=== PATIENT | female | born 1950 | race Hispanic/Latino ===

== ENCOUNTER 2021-09-12 09:07 | Outpatient (CLI) | payer MEDICARE ==
--- NOTE | 2021-09-12 10:20 | Cat Scan Report ---
. CT CHEST WITHOUT CONTRAST INDICATION / CLINICAL INFORMATION: R22.1 F17.210 lung cancer screening . TECHNIQUE: Axial CT images were obtained through the chest without contrast. All CT scans at this [facility] ation are performed using CT dose reduction for ALARA by means of automated exposure control. COMPARISON: None available. FINDINGS: HEART: No significant abnormality. CORONARY ARTERY CALCIFICATION: Present -- Severe. THORACIC AORTA: Mild atherosclerotic calcification without acute abnormality. MEDIASTINUM / SHARDA: No significant abnormality. PLEURA: No pleural effusion. No pneumothorax. LUNGS: No acute air space or interstitial disease. No suspicious pulmonary lesion ADDITIONAL FINDINGS: No mass or adenopathy is visualized in the included lower neck. UPPER ABDOMEN: No significant abnormality. SKELETAL SYSTEM: No significant abnormality. IMPRESSION: 1. No acute abnormality. No mass or adenopathy is appreciated. 2. Severe coronary artery calcifications. Signer Name: Sven Colin Jr, MD Signed: 09/12/2021 10:16 AM Workstation Name: [id number]
--- NOTE | 2021-09-12 10:36 | Ultrasound Report ---
SOFT TISSUE NECK ULTRASOUND HISTORY: R22.1 NECK SWELLING. TECHNIQUE: Grayscale and color Doppler imaging performed. COMPARISON: None FINDINGS: Targeted ultrasound was performed in the left neck near the left jawline. The images demons trate what appear to be a prominent left submandibular gland measuring 3.8 x 3.0 x 1.1 cm. No evidenc e for focal mass, calcifications or soft tissue gas. No obvious submandibular duct dilatation is demo nstrated. No adenopathy or fluid collection. Color Doppler imaging suggest mild increased blood flow to the left submandibular gland. IMPRESSION: Slightly prominent/inflamed left submandibular gland. Signer Name: Sven Colin Jr, MD Signed: 09/12/2021 10:31 AM Workstation Name: [id number]
== END 2021-09-12 09:08 | disposition home or self-care (01) ==
LOC: US 09:07
DX: F17.210 Nicotine dependence, cigarettes, uncomplicated (principal); I25.10 Atherosclerotic heart disease of native coronary artery without angina pectoris; R22.1 Localized swelling, mass and lump, neck; I70.0 Atherosclerosis of aorta
CPT/HCPCS: 71250; 76536

== ENCOUNTER 2021-10-10 11:15 | Outpatient (CLI) | payer MEDICARE ==
--- NOTE | 2021-10-10 15:13 | Mammography Report ---
DEXA BONE DENSITY SCAN INDICATION / CLINICAL INFORMATION: Z78.0. 71 years Female COMPARISON: None available. LUMBAR SPINE, L1-L4: - Bone mineral density (BMD) = 1.302 g/cm2. - T-score = 2.3 - Change (%) since most recent prior (if available): None available. RIGHT HIP, : -Not performed. LEFT HIP, NECK : - Bone mineral density (BMD) = 0.699 g/cm2. - T-score = -1.3 - Change (%) since most recent prior (if available): None available. LEFT FOREARM, 33% RADIUS - Bone mineral density (BMD) = 0.675 g/cm2. - T-score = -0.1 - Change (%) since most recent prior (if available): None available. IMPRESSION: 1. WHO Classification: Osteopenia. Fracture Risk: Increased. 2. 10-Year Fracture Risk (FRAX) = Major Osteoporotic 3.7% / Hip: 0.4% FRAX generally not reported for patients with normal or osteoporotic BMD, in ciy-[id number]-[id number] isa ents younger than age 50, or in patients undergoing pharmacotherapy BMD Reporting Guidelines (ISCD, 2015) BMD Reporting in Postmenopausal Women and in Men Age 50 and Older - T-scores are preferred. - The WHO densitometric classification is applicable. BMD Reporting in Females Prior to Menopause and in Males Younger Than Age 50 - Z-scores, not T-scores, are preferred. This is particularly important in children. - A Z-score of -2.0 or lower is defined as below the expected range for age, and a Z-score above -2.0 is within the expected range for age. - Osteoporosis cannot be diagnosed in men under age 50 on the basis of BMD alone. - The WHO diagnostic criteria may be applied to women in the menopausal transition. http://www.iscd.org/official-positions/1776-fiaq-nsfrddmm-positions-adult/ Signer Name: Chase Kirkpatrick MD Signed: 10/10/2021 3:09 PM Workstation Name: [id number]
== END 2021-10-10 11:16 | disposition home or self-care (01) ==
LOC: MAMMO 11:15
DX: M85.88 Other specified disorders of bone density and structure, other site (principal); Z78.0 Asymptomatic menopausal state
CPT/HCPCS: 77080